=== PATIENT | male | born 1965 | race Caucasian/White ===

== ENCOUNTER 2022-08-11 01:25 | Emergency (ER) | payer BC, SELFPAY ==
[2022-08-11 01:35] VITALS: BP 150/104; PULSE 74; RESP 20; TEMP 37.1; O2SAT 97; BMI 28.7
--- NOTE | 2022-08-11 01:43 | CRLHL7_ITS ---
For Patients: As a result of the Century Cures Act, medical imaging exams and procedure reports are released immediately into your electronic medical record. You may view this report before your referring provider. If you have questions, please contact your health care provider. HISTORY: Right clavicular pain after fall. COMPARISON: None available. FINDINGS: The right clavicle is examined with AP and cranially angulated views. There is an acute, comminuted, oblique fracture of the midshaft of the right clavicle with 30 percent inferior displacement and less than 10 degrees inferior angulation of the distal fracture fragment. The acromioclavicular joint is normal in appearance with no sign of separation. The visualized portions of the right shoulder and upper chest are normal in appearance. IMPRESSION: Acute, comminuted, oblique, mildly displaced and minimally angulated fracture of the midshaft of the right clavicle. Dictated by Jm Last MD @ 08/11/2022 2:38:35 AM (Electronically Signed)
--- NOTE | 2022-08-11 01:44 | ED_ITS ---
HPI - Trauma General Chief Complaint: Clavicle Injury/Pain Stated Complaint: Right collarbone injury Time Seen by Provider: 08/11/22 01:41 History of Present Illness HPI narrative: Pt is a 56 year old gentleman who slipped and fell on the ice approximately one hour ago. Pt fell on his right shoulder and has severe pain and moderate deformity of the mid-clavicle on the right. Pt did not hit his head and did not injure his neck. No LOC. Pt has no neurovascular defects and can move all extremities. No skin breakdown. Pt otherwise has no complaints. Related Data Home Medications Medication Instructions Recorded Confirmed amitriptyline 10 mg tablet 10 mg PO QPM 08/11/22 08/11/22 atorvastatin 20 mg tablet 20 mg PO DAILY 08/11/22 08/11/22 citalopram 20 mg tablet 20 mg PO DAILY 08/11/22 08/11/22 verapamil 120 mg 24 hr mg PO 08/11/22 capsule,extended release Allergies Allergy/AdvReac Type Severity Reaction Status Date / Time No Known Drug Allergies Allergy Verified 08/11/22 01:35 Review of Systems Status of ROS: Reports: 6 or more systems reviewed and unremarkable except as noted in History and below [facility] Medical History (Updated 08/11/22 @ 02:06 by Fernando David MD) Depression Hyperlipidemia Hypertension Exam Narrative: Exam Narrative: EXAM GENERAL: Patient appears comfortable and well. EYES: No scleral icterus. ENT: Tympanic membranes and oropharynx normal. THYROID: no thyroid nodules or thyromegaly. LYMPH: No supraclavicular or cervical lymphadenopathy. SKIN: Visible skin seen during exam normal or with benign process only. EXT: No dependent lower extremity pedal edema. Obvious deformity of the mid clavicle on the right. HEART: Regular rate and rhythm with no murmurs, rubs, or gallops. LUNGS: Clear to auscultation bilaterally with no crackles or wheezes. ABD: Soft, non tender, non distended. PSYCH: Good eye contact, speech is not pressured. Neurologic cranial nerves 2-12 grossly intact no focal defects. Const: Vital Signs, click to edit/add: Vital Signs - 24 hr 08/11/22 01:35 Temperature 98.8 F Pulse Rate [Right Pulse Oximeter] 74 Respiratory Rate 20 Blood Pressure [Le ft Upper Arm] 150/104 H Pulse Oximetry 97 Oxygen Delivery Me thod Room Air Course Course Hospital Course: Pt seen and examined. X ray of right clavicle ordered. Reevaluation(s) Reevaluation #1: Mildly displaced right clavicle fracture noted on xray. Time: 02:03 Vital Signs Vital signs: Initial Vital Signs Temperature 98.8 F 08/11/22 01:35 Temperature Source Temporal Artery Scan 08/11/22 01:35 Pulse Rate 74 08/11/22 01:35 Pulse Rhythm 08/11/22 01:35 Pulse Strength 3+ Normal 08/11/22 01:35 Respiratory Rate 20 08/11/22 01:35 Blood Pressure 150/104 H 08/11/22 01:35 Blood Pressure Mean 119 08/11/22 01:35 Blood Pressure Position Sitting 08/11/22 01:35 Pulse Oximetry 97 08/11/22 01:35 Oxygen Delivery Method 08/11/22 01:35 Vital Signs Temperature 98.8 F 08/11/22 01:35 Pulse Rate 74 08/11/22 01:35 Respiratory Rate 20 08/11/22 01:35 Blood Pressure 150/104 H 08/11/22 01:35 Pulse Oximetry 97 08/11/22 01:35 Oxygen Delivery Method 08/11/22 01:35 Temperature 98.8 F 08/11/22 01:35 Pulse Rate 74 08/11/22 01:35 Respiratory Rate 20 08/11/22 01:35 Blood Pressure 150/104 H 08/11/22 01:35 Pulse Oximetry 97 08/11/22 01:35 Oxygen Delivery Method 08/11/22 01:35 MDM - Trauma MDM Narrative Medical decision making narrative: Pt is a 56 year old gentleman who fell on the ice and suffered a right clavicle fracture. I do not see any other injuries and he has no other complaints. Vitals are stable. Will treat with a sling, ice, pain control and orthopedic follow up. Differential included. AC Injury, Clavicle Fracture, Sprain, Chest wall injury Discharge Plan Discharge Clinical Impression: Clavicle fracture Condition: Stable Instructions: Clavicle Fracture (ED) Additional Instructions: Ice Pain control Sling Follow up with Ortho this coming week. Activity Level: No Restrictions Discharge Diet: Regular Prescriptions: No Action atorvastatin 20 mg tablet 20 mg PO DAILY citalopram 20 mg tablet 20 mg PO DAILY amitriptyline 10 mg tablet 10 mg PO QPM verapamil 120 mg capsule,ext rel. pellets 24 hr PO Follow Up/Referrals: Kamari Wilkes MD [Primary Care Provider] - Stand Alone Forms: Local [employer] Info Instructions
== END 2022-08-11 02:37 | disposition home or self-care (01) ==
LOC: ED 02:12
PROVIDERS: Emergency Provider Internal Medicine; PCP Family Medicine
DX: S42.021A Displaced fracture of shaft of right clavicle, initial encounter for closed fracture (principal); W00.9XXA Unspecified fall due to ice and snow, initial encounter
CPT/HCPCS: 73000; 99283

== ENCOUNTER 2022-09-28 10:54 | Outpatient (RCR) | payer BC, SELFPAY | END 2023-01-26 23:59 | disposition home or self-care (01) | PROVIDERS: PCP Family Medicine; Visit Provider Physician Assistant Surgical | DX: S42.001A Fracture of unspecified part of right clavicle, initial encounter for closed fracture (principal); M25.511 Pain in right shoulder; R53.1 Weakness; Z74.09 Other reduced mobility; Z51.89 Encounter for other specified aftercare | CPT/HCPCS: 97162 ==

== ENCOUNTER 2023-10-23 15:00 | Outpatient (RCR) | payer BC, SELFPAY | END 2023-12-19 09:31 | disposition home or self-care (01) | PROVIDERS: PCP Family Medicine; Visit Provider Orthopaedic Surgery | DX: M25.511 Pain in right shoulder (principal); M25.512 Pain in left shoulder; Z51.89 Encounter for other specified aftercare; M62.81 Muscle weakness (generalized) | CPT/HCPCS: 97110; 97140; 97161 ==